=== PATIENT | male | born 1960 | race African-American/Black ===

== ENCOUNTER 2016-08-13 08:46 | Emergency (ER) | payer MEDICAID, OTHER ==
[~2016-08-13] VITALS: Ht 180.3 cm; Wt 70.0 kg
[~2016-08-13 08:46] MED LIST: AMLO10TA80 PO; ATOR20TA65 PO; HYDR-3933 PO; RIVA20TA PO; ZOLP5TAB8
[2016-08-13] MEDS ORDERED: MORPHINE SULFATE 4 MG/ML CPJ (NOT FOR IM USE) IV STA (09:10)
[2016-08-13] MEDS ORDERED: FAMOTIDINE 20MG/2ML VIAL IV STA (09:10)
[2016-08-13] MEDS ORDERED: SODIUM CHLORIDE 0.9% 1,000 ML IV ONE (09:10)
[2016-08-13] MEDS ORDERED: ONDANSETRON HCL 4MG/2ML VIAL IV STA (09:10)
[2016-08-13] MEDS ORDERED: SODIUM CHLORIDE 0.9% 1000ML BAG (SEPSIS BOLUS) IV ONE (09:15)
[2016-08-13 09:39] LABS: CLARITY URINE CLEAR (CLEAR); COLOR URINE YELLOW (YELLOW); GLUCOSE URINE NEGATIVE (NEGATIVE); KETONES URINE NEGATIVE (NEGATIVE); LEUKOCYTE ESTERASE URINE NEGATIVE (NEGATIVE); NITRITE URINE NEGATIVE (NEGATIVE); OCCULT BLOOD URINE 1+ (NEGATIVE); PROTEIN URINE NEGATIVE (NEGATIVE); SPECIFIC GRAVITY URINE 1.007 (1.005-1.030); UROBILINOGEN URINE 0.2 E.U./dL (0.2-1.0)
[2016-08-13 09:39] LABS: BASOPHILS % 0.4 % (0.0-2.0); DIFFERENTIAL COMMENT 1; EOSINOPHILS % 0.2 % (0.0-5.0); HEMATOCRIT. 44.1 % (42.0-52.0); HEMOGLOBIN. 15.9 g/dL (14.0-18.0); LYMPHOCYTES % 12.3 % (20.0-50.0); MEAN CORPUSCULAR HGB CONC 36.1 g/dL (31.0-37.0); MEAN CORPUSCULAR VOLUME 91.2 fL (80.0-94.0); MEAN PLATELET VOLUME 6.8 fl (7.4-10.4); MONOCYTES % 5.9 % (2.0-8.0); NEUTROPHILS % 81.2 % (40.0-76.0); PLATELET 208 x1000/uL (130-400); RED BLOOD CELL COUNT 4.84 mill/uL (4.7-6.1); RED CELL DISTRIBUTION WIDTH 16.6 % (11.6-14.6); WHITE BLOOD COUNT 5.9 x1000/uL (4.5-11.0)
[2016-08-13 09:40] LABS: BACTERIA URINE NONE SEEN; CALCIUM PHOSPHATE CRYSTALS UR NONE SEEN /lpf; RBC URINE NONE SEEN /hpf (0-2); SQUAMOUS EPITHELIAL CELL URINE NONE SEEN /lpf (RARE/1+); WAXY CASTS URINE NONE SEEN /lpf; WBC URINE NONE SEEN /hpf (0-2); YEAST URINE NONE SEEN
[2016-08-13 09:42] LABS: PARTIAL THROMBOPLASTIN TIME 28.4 sec (24.0-34.0); PROTHROMBIN TIME 10.3 sec
[2016-08-13 09:50] LABS: ALANINE AMINOTRANSFERASE 38 IU/L (13-61); ALBUMIN 3.2 g/dL (3.4-5.0); ANION GAP 14; CALCIUM 8.7 mg/dL (8.5-10.1); CARBON DIOXIDE 24 mEq/L (21-32); CHLORIDE 101 mEq/L (98-107); ETHANOL BLOOD 61 mg/dL; INDEX HEMOLYSI 1 (1-3); INDEX ICTERIC 1 (1-4); INDEX LIPEMIC 1 (1-3); LIPASE 85 IU/L (73-393); TROPONIN I < 0.02 ng/mL (0.00-0.04); UREA NITROGEN BLOOD 5 mg/dL (7-21); eGFR > 60 mL/min (>60)
[2016-08-13 10:09] LABS: *AMPHETAMINES SCREEN URINE NEGATIVE (NEGATIVE); *BARBITURATES SCREEN URINE NEGATIVE (NEGATIVE); *BENZODIAZEPINES SCREEN URINE NEGATIVE (NEGATIVE); *COCAINE SCREEN URINE NEGATIVE (NEGATIVE); CANNABINOID URINE SCREEN PRESUMTIVE POSITIVE (NEGATIVE); ECSTASY MDMA SCREEN URINE NEGATIVE (NEGATIVE); METHADONE URINE SCREEN NEGATIVE (NEGATIVE); OPIATES URINE SCREEN NEGATIVE (NEGATIVE); PHENCYCLIDINE URINE SCREEN NEGATIVE (NEGATIVE)
[2016-08-13 11:04] VITALS: BP 135/89
== END 2016-08-13 13:10 | disposition home or self-care (01) ==
LOC: ER 08:46
DX: R10.9 Unspecified abdominal pain (principal); R11.10 Vomiting, unspecified; R19.7 Diarrhea, unspecified; I10 Essential (primary) hypertension; R31.29 Other microscopic hematuria; Z79.01 Long term (current) use of anticoagulants; Z89.512 Acquired absence of left leg below knee
CPT/HCPCS: 36415; 71010; 74176; 76705; 80053; 80305; 81001; 83690; 84484; 85025; 85610; 85730; 93005; 96361; 96374; 96375; 99285; G0482; J2270; J2405; J3490; J7030; Z7610

== ENCOUNTER 2016-09-08 07:12 | Emergency (ER) | payer MEDICAID, OTHER ==
[~2016-09-08] VITALS: Ht 172.7 cm; Wt 73.0 kg
[2016-09-08] MEDS ORDERED: SODIUM CHLORIDE 0.9% 1,000 ML IV ONE (07:53)
[2016-09-08] MEDS ORDERED: MORPHINE SULFATE 4 MG/ML CPJ (NOT FOR IM USE) IV ONE (08:00)
[2016-09-08 08:22] LABS: CHLORIDE 102 mEq/L (98-107)
[2016-09-08 08:23] LABS: PROTHROMBIN TIME 10.6 sec
[2016-09-08 08:30] LABS: CARBON DIOXIDE 25 mEq/L (21-32)
[2016-09-08 08:35] LABS: BASOPHILS % 1.2 % (0.0-2.0); EOSINOPHILS % 0.8 % (0.0-5.0); HEMATOCRIT. 42.3 % (42.0-52.0); HEMOGLOBIN. 15.4 g/dL (14.0-18.0); LYMPHOCYTES % 22.4 % (20.0-50.0); MEAN CORPUSCULAR HEMOGLOBIN 33.8 pg (28.0-32.0); MEAN PLATELET VOLUME 6.8 fl (7.4-10.4); MONOCYTES % 8.5 % (2.0-8.0); NEUTROPHILS % 67.1 % (40.0-76.0); PLATELET 241 x1000/uL (130-400); RED BLOOD CELL COUNT 4.54 mill/uL (4.7-6.1); RED CELL DISTRIBUTION WIDTH 16.2 % (11.6-14.6)
[2016-09-08 10:12] LABS: CLARITY URINE CLEAR (CLEAR); COLOR URINE YELLOW (YELLOW); GLUCOSE URINE NEGATIVE (NEGATIVE); KETONES URINE NEGATIVE (NEGATIVE); LEUKOCYTE ESTERASE URINE NEGATIVE (NEGATIVE); NITRITE URINE NEGATIVE (NEGATIVE); OCCULT BLOOD URINE TRACE (NEGATIVE); PH URINE 5.5 (4.5-8.0); PROTEIN URINE NEGATIVE (NEGATIVE); SPECIFIC GRAVITY URINE 1.011 (1.005-1.030); UROBILINOGEN URINE 0.2 E.U./dL (0.2-1.0)
[2016-09-08] MEDS ORDERED: POLYETHYLENE GLYCOL 3350 (17GM) 1 DOSE PACK PO ONE (11:00)
[2016-09-08 11:10] VITALS: BP 138/88
== END 2016-09-08 11:45 | disposition home or self-care (01) ==
LOC: ER 07:12
DX: K59.00 Constipation, unspecified (principal); I10 Essential (primary) hypertension; F17.210 Nicotine dependence, cigarettes, uncomplicated; F12.10 Cannabis abuse, uncomplicated; Z79.899 Other long term (current) drug therapy
CPT/HCPCS: 36415; 80053; 81001; 83690; 85025; 85610; 96361; 96374; 99284; J2270; J7030; Z7610

== ENCOUNTER 2016-09-09 14:44 | Emergency (ER) | payer MEDICAID, OTHER ==
[~2016-09-09] VITALS: Ht 182.9 cm; Wt 82.0 kg
[2016-09-09] MEDS ORDERED: MORPHINE SULFATE 4 MG/ML CPJ (NOT FOR IM USE) IV STA (16:41)
[2016-09-09] MEDS ORDERED: ONDANSETRON HCL 4MG/2ML VIAL IV STA (16:41)
[2016-09-09] MEDS ORDERED: SODIUM CHLORIDE 0.9% 1,000 ML IV ONE (16:41)
[2016-09-09 17:22] LABS: CHLORIDE 104 mEq/L (98-107)
[2016-09-09 17:24] LABS: PROTHROMBIN TIME 10.8 sec
[2016-09-09 17:25] LABS: CARBON DIOXIDE 26 mEq/L (21-32)
[2016-09-09 17:42] LABS: HEMATOCRIT. 40.4 % (42.0-52.0); HEMOGLOBIN. 14.4 g/dL (14.0-18.0); MEAN CORPUSCULAR HEMOGLOBIN 33.3 pg (28.0-32.0); MEAN CORPUSCULAR VOLUME 93.2 fL (80.0-94.0); MEAN PLATELET VOLUME 6.8 fl (7.4-10.4); PLATELET 231 x1000/uL (130-400); RED BLOOD CELL COUNT 4.34 mill/uL (4.7-6.1)
[2016-09-09 18:44] LABS: CLARITY URINE CLEAR (CLEAR); COLOR URINE YELLOW (YELLOW); GLUCOSE URINE NEGATIVE (NEGATIVE); KETONES URINE NEGATIVE (NEGATIVE); LEUKOCYTE ESTERASE URINE NEGATIVE (NEGATIVE); NITRITE URINE NEGATIVE (NEGATIVE); OCCULT BLOOD URINE NEGATIVE (NEGATIVE); PH URINE 5.5 (4.5-8.0); PROTEIN URINE NEGATIVE (NEGATIVE); SPECIFIC GRAVITY URINE 1.011 (1.005-1.030); UROBILINOGEN URINE 0.2 E.U./dL (0.2-1.0)
[2016-09-09 18:50] LABS: ATYPICAL LYMPHOCYTES 1; PLATELET ESTIMATE NORMAL
[2016-09-09] MEDS ORDERED: SORBITOL 70% SOLN 30ML PO ONE (19:15)
[2016-09-09] MEDS ORDERED: NA PHOS,M-B/NA PHOS,DI-BA ENEMA 118ML PR ONE (19:15)
[2016-09-09 22:10] VITALS: BP 139/81
== END 2016-09-09 23:40 | disposition home or self-care (01) ==
LOC: ER 15:10
DX: K59.00 Constipation, unspecified (principal); I10 Essential (primary) hypertension; F12.10 Cannabis abuse, uncomplicated; Z89.512 Acquired absence of left leg below knee; Z79.01 Long term (current) use of anticoagulants
CPT/HCPCS: 36415; 71010; 74176; 80053; 81003; 83690; 85025; 85610; 96361; 96374; 96375; 99285; J2270; J2405; J7030

== ENCOUNTER 2016-11-05 01:11 | Emergency (ER) | payer OTHER ==
[~2016-11-05] VITALS: Ht 182.9 cm; Wt 82.0 kg
[2016-11-05] MEDS ORDERED: SODIUM CHLORIDE 0.9% 500 ML IV ONE (02:22)
[2016-11-05 02:40] LABS: CHLORIDE 99 mEq/L (98-107)
[2016-11-05 02:41] LABS: EOSINOPHILS % 0.4 % (0.0-5.0); MEAN PLATELET VOLUME 6.8 fl (7.4-10.4); RED CELL DISTRIBUTION WIDTH 14.3 % (11.6-14.6)
[2016-11-05 02:42] LABS: PROTHROMBIN TIME 10.3 sec
[2016-11-05] MEDS ORDERED: MORPHINE SULFATE 4 MG/ML CPJ (NOT FOR IM USE) IV ONE (02:45)
[2016-11-05] MEDS ORDERED: ONDANSETRON HCL 4MG/2ML VIAL IV ONE (02:45)
[2016-11-05 02:49] LABS: CARBON DIOXIDE 21 mEq/L (21-32)
[2016-11-05 03:03] VITALS: BP 146/91
[2016-11-05 03:03] LABS: BASOPHILS % 0.6 % (0.0-2.0); HEMATOCRIT. 40.8 % (42.0-52.0); HEMOGLOBIN. 14.8 g/dL (14.0-18.0); LYMPHOCYTES % 17.5 % (20.0-50.0); MEAN CORPUSCULAR HEMOGLOBIN 34.3 pg (28.0-32.0); MEAN CORPUSCULAR VOLUME 94.7 fL (80.0-94.0); MONOCYTES % 8.5 % (2.0-8.0); PLATELET 237 x1000/uL (130-400); RED BLOOD CELL COUNT 4.31 mill/uL (4.7-6.1)
[2016-11-05 05:47] LABS: CLARITY URINE CLEAR (CLEAR); COLOR URINE YELLOW (YELLOW); GLUCOSE URINE NEGATIVE (NEGATIVE); KETONES URINE 1+ (NEGATIVE); LEUKOCYTE ESTERASE URINE NEGATIVE (NEGATIVE); NITRITE URINE NEGATIVE (NEGATIVE); OCCULT BLOOD URINE TRACE (NEGATIVE); PROTEIN URINE NEGATIVE (NEGATIVE); SPECIFIC GRAVITY URINE 1.013 (1.005-1.030); UROBILINOGEN URINE 0.2 E.U./dL (0.2-1.0)
[2016-11-05] MEDS ORDERED: CEFTRIAXONE SODIUM 250 MG/VIAL IM ONE (07:15)
[2016-11-05] MEDS ORDERED: ONDANSETRON 4MG ODT PO ONE (07:15)
[2016-11-05] MEDS ORDERED: HYDROCODONE/ACETAMINOPHEN 5/325MG TABLET PO ONE (07:15)
== END 2016-11-05 07:39 | disposition home or self-care (01) ==
LOC: ER 01:11
DX: R10.11 Right upper quadrant pain (principal); E78.00 Pure hypercholesterolemia, unspecified; F12.10 Cannabis abuse, uncomplicated; I10 Essential (primary) hypertension; R07.9 Chest pain, unspecified; R06.02 Shortness of breath; Z89.512 Acquired absence of left leg below knee; Z79.01 Long term (current) use of anticoagulants
CPT/HCPCS: 36415; 71010; 74176; 80053; 81001; 83690; 85025; 85610; 93005; 96361; 96374; 96375; 99285; J2270; J2405; J7040; Z7610

== ENCOUNTER 2016-11-05 23:36 | Inpatient (IN) | payer OTHER ==
[~2016-11-05] VITALS: Ht 180.3 cm; Wt 64.0 kg
[2016-11-05] MEDS ORDERED: ONDANSETRON HCL 4MG/2ML VIAL IV STA (23:58)
[2016-11-05] MEDS ORDERED: SODIUM CHLORIDE 0.9% 1,000 ML IV ONE (23:58)
[2016-11-05] MEDS ORDERED: FAMOTIDINE 20MG/2ML VIAL IV STA (23:58)
[2016-11-05] MEDS ORDERED: VISCOUS LIDOCAINE 2% 15 ML UDC PO STA (23:58)
[2016-11-05] MEDS ORDERED: KETOROLAC 30MG/ML VIAL IV STA (23:58)
[2016-11-05] MEDS ORDERED: MAGNESIUM/ALUMINUM HYDROXIDE/SIMETHICONE 30ML UDC PO STA (23:58)
[2016-11-06 00:40] LABS: BASOPHILS % 0.2 % (0.0-2.0); EOSINOPHILS % 0.2 % (0.0-5.0); LYMPHOCYTES % 12.6 % (20.0-50.0); MEAN CORPUSCULAR VOLUME 93.8 fL (80.0-94.0); MEAN PLATELET VOLUME 6.7 fl (7.4-10.4); MONOCYTES % 5.3 % (2.0-8.0); NEUTROPHILS % 81.7 % (40.0-76.0); PLATELET 226 x1000/uL (130-400); RED BLOOD CELL COUNT 4.17 mill/uL (4.7-6.1); RED CELL DISTRIBUTION WIDTH 14.5 % (11.6-14.6)
[2016-11-06 01:00] LABS: CARBON DIOXIDE 21 mEq/L (21-32); CHLORIDE 98 mEq/L (98-107); ETHANOL BLOOD < 10 mg/dL; TROPONIN I < 0.02 ng/mL (0.00-0.04)
[2016-11-06 01:19] LABS: D-DIMER 18.85 mg/L FEU (<0.50); PROTHROMBIN TIME 10.2 sec
[2016-11-06 01:39] LABS: HEMATOCRIT. 42.5 % (42.0-52.0); MEAN CORPUSCULAR HEMOGLOBIN 33.8 pg (28.0-32.0)
[2016-11-06] MEDS ORDERED: SODIUM CHLORIDE 0.9% 1,000 ML IV ONE (02:41)
[2016-11-06 04:45] LABS: CLARITY URINE CLEAR (CLEAR); COLOR URINE YELLOW (YELLOW); GLUCOSE URINE NEGATIVE (NEGATIVE); KETONES URINE 1+ (NEGATIVE); LEUKOCYTE ESTERASE URINE NEGATIVE (NEGATIVE); NITRITE URINE NEGATIVE (NEGATIVE); OCCULT BLOOD URINE 1+ (NEGATIVE); PH URINE 5.5 (4.5-8.0); PROTEIN URINE NEGATIVE (NEGATIVE); SPECIFIC GRAVITY URINE 1.013 (1.005-1.030); UROBILINOGEN URINE 0.2 E.U./dL (0.2-1.0)
[2016-11-06 05:00] LABS: *AMPHETAMINES SCREEN URINE NEGATIVE (NEGATIVE); *BARBITURATES SCREEN URINE NEGATIVE (NEGATIVE); *BENZODIAZEPINES SCREEN URINE NEGATIVE (NEGATIVE); *COCAINE SCREEN URINE NEGATIVE (NEGATIVE); CANNABINOID URINE SCREEN PRESUMTIVE POSITIVE (NEGATIVE); METHADONE URINE SCREEN NEGATIVE (NEGATIVE); OPIATES URINE SCREEN PRESUMTIVE POSITIVE (NEGATIVE); PHENCYCLIDINE URINE SCREEN NEGATIVE (NEGATIVE)
[2016-11-06 08:00] VITALS: BP 153/89
[2016-11-06] MEDS ORDERED: ONDANSETRON HCL 4MG/2ML VIAL IV PRN (08:15)
[2016-11-06] MEDS: AMLODIPINE 10MG TABLET PO SCH (08:32)
[2016-11-06] MEDS: MORPHINE SULFATE 2 MG/ML CPJ (NOT FOR IM USE) IV PRN ×4 (08:33→20:39)
[2016-11-06] MEDS: FOLIC ACID 1 MG, THIAMINE HCL 100 MG, MVI, ADULT NO.1 10 ML in DEXTROSE 5% WATER 1,000 ML IV SCH ×4 (08:49)
[2016-11-06] MEDS ORDERED: IOHEXOL-350 100 ML BOTTLE ONE (09:22)
[2016-11-06] MEDS ORDERED: SODIUM CHLORIDE 0.9% 10ML VIAL ONE (09:22)
[2016-11-06 12:00] VITALS: BP 144/89
[2016-11-06 16:00] VITALS: BP 136/89
[2016-11-06] MEDS: RIVAROXABAN 20 MG TABLET PO SCH (16:42)
[2016-11-06] MEDS: DEXT 5%/0.45% NACL KCL 20MEQ/L 1,000 ML IV SCH (19:07)
[2016-11-06 20:00] VITALS: BP 141/89
[2016-11-06] MEDS: ZOLPIDEM TARTRATE 5MG TABLET PO PRN (23:34)
[2016-11-07] VITALS: BP 121/84
[2016-11-07] MEDS: MORPHINE SULFATE 2 MG/ML CPJ (NOT FOR IM USE) IV PRN ×6 (00:54→21:08)
[2016-11-07] MEDS: DEXT 5%/0.45% NACL KCL 20MEQ/L 1,000 ML IV SCH ×3 (00:56→17:23)
[2016-11-07 04:00] VITALS: BP 124/80
[2016-11-07 08:00] VITALS: BP 131/79
[2016-11-07] MEDS: AMLODIPINE 10MG TABLET PO SCH (08:16)
[2016-11-07] MEDS: FOLIC ACID 1 MG, THIAMINE HCL 100 MG, MVI, ADULT NO.1 10 ML in DEXTROSE 5% WATER 1,000 ML IV SCH ×4 (08:17)
[2016-11-07 12:00] VITALS: BP 160/101
[2016-11-07 16:00] VITALS: BP 149/87
[2016-11-07] MEDS: RIVAROXABAN 20 MG TABLET PO SCH (17:50)
[2016-11-07 20:00] VITALS: BP 148/95
[2016-11-07] MEDS: CLONIDINE 0.2MG TABLET PO SCH (21:15)
[2016-11-07] MEDS: ZOLPIDEM TARTRATE 5MG TABLET PO PRN (22:44)
[2016-11-08] VITALS: BP 124/80
[2016-11-08] MEDS: DEXT 5%/0.45% NACL KCL 20MEQ/L 1,000 ML IV SCH ×2 (02:04→09:05)
[2016-11-08] MEDS: MORPHINE SULFATE 2 MG/ML CPJ (NOT FOR IM USE) IV PRN ×2 (02:11→06:55)
[2016-11-08] MEDS: CLONIDINE 0.2MG TABLET PO SCH (06:57)
[2016-11-08 07:52] LABS: CHLORIDE 97 mEq/L (98-107)
[2016-11-08 07:57] LABS: HEMATOCRIT 42.5 % (42.0-52.0); HEMOGLOBIN 15.2 g/dL (14.0-18.0); MEAN CORPUSCULAR HEMOGLOBIN 33.9 pg (28.0-32.0); MEAN CORPUSCULAR VOLUME 94.6 fL (80.0-94.0); PLATELET 230 x1000/uL (130-400); RED BLOOD CELL COUNT 4.49 mill/uL (4.7-6.1); RED CELL DISTRIBUTION WIDTH 14.4 % (11.6-14.6)
[2016-11-08 08:00] VITALS: BP 122/82
[2016-11-08 08:07] LABS: CARBON DIOXIDE 25 mEq/L (21-32)
[2016-11-08] MEDS: FOLIC ACID 1 MG, THIAMINE HCL 100 MG, MVI, ADULT NO.1 10 ML in DEXTROSE 5% WATER 1,000 ML IV SCH ×4 (08:59)
[2016-11-08] MEDS ORDERED: NIFEDIPINE XL 30MG TAB PO SCH (09:00)
== END 2016-11-08 11:15 | disposition left against medical advice (07) | DRG 282 ==
LOC: ER 23:36 → 6EST 11-06 02:48
PROVIDERS: ADMIT Internal Medicine; ATTEND Internal Medicine
DX: K85.20 Alcohol induced acute pancreatitis without necrosis or infection (principal); E44.0 Moderate protein-calorie malnutrition; I10 Essential (primary) hypertension; F10.10 Alcohol abuse, uncomplicated; E78.5 Hyperlipidemia, unspecified; Z89.512 Acquired absence of left leg below knee; Z53.21 Procedure and treatment not carried out due to patient leaving prior to being seen by health care provider; Z79.899 Other long term (current) drug therapy; Z87.891 Personal history of nicotine dependence; Z86.79 Personal history of other diseases of the circulatory system; Z68.1 Body mass index [BMI] 19.9 or less, adult
CPT/HCPCS: 36415; 71010; 71275; 76700; 80053; 80305; 81001; 83605; 83690; 83880; 84484; 85025; 85027; 85379; 85610; 93005; 96361; 96374; 96375; 99285; A4216; C1893; G0482; J1885; J2270; J2405; J3411; J3490; J7030; J7070; Q9967

== ENCOUNTER 2017-08-04 07:38 | Emergency (ER) | payer MEDICAID, OTHER ==
[~2017-08-04] VITALS: Ht 180.3 cm; Wt 80.0 kg
[2017-08-04] MEDS ORDERED: ONDANSETRON HCL 4MG/2ML VIAL IV STA (09:04)
[2017-08-04] MEDS ORDERED: MORPHINE SULFATE 4 MG/ML CPJ (NOT FOR IM USE) IV STA (09:04)
[2017-08-04] MEDS ORDERED: SODIUM CHLORIDE 0.9% 1,000 ML IV ONE (09:04)
[2017-08-04 09:28] LABS: CHLORIDE 105 mEq/L (98-107)
[2017-08-04 09:30] LABS: INR 0.9; PARTIAL THROMBOPLASTIN TIME 28.7 sec (23.4-31.0); PROTHROMBIN TIME 9.6 sec (9.4-11.6)
[2017-08-04 09:38] LABS: BASOPHILS % 0.9 % (0.0-2.0); EOSINOPHILS % 0.9 % (0.0-5.0); HEMATOCRIT. 42.7 % (42.0-52.0); HEMOGLOBIN. 15.2 g/dL (14.0-18.0); LYMPHOCYTES % 20.5 % (20.0-50.0); MEAN CORPUSCULAR HEMOGLOBIN 33.3 pg (28.0-32.0); MEAN CORPUSCULAR VOLUME 93.5 fL (80.0-94.0); NEUTROPHILS % 69.7 % (40.0-76.0); PLATELET 203 x1000/uL (130-400); RED BLOOD CELL COUNT 4.56 mill/uL (4.7-6.1); RED CELL DISTRIBUTION WIDTH 20.1 % (11.6-14.6)
[2017-08-04] MEDS ORDERED: IOHEXOL-300 100 ML BOTTLE ONE (09:55)
[2017-08-04 12:07] VITALS: BP 151/96
== END 2017-08-04 12:12 | disposition home or self-care (01) ==
LOC: ER 08:02
DX: R07.89 Other chest pain (principal); I10 Essential (primary) hypertension; E78.00 Pure hypercholesterolemia, unspecified; F12.10 Cannabis abuse, uncomplicated; Z98.890 Other specified postprocedural states; Z95.5 Presence of coronary angioplasty implant and graft
CPT/HCPCS: 36415; 71260; 74177; 80053; 83605; 83690; 85025; 85610; 85730; 87040; 93005; 96361; 96374; 96375; 99285; J2270; J2405; J7030; Q9967

== ENCOUNTER 2018-05-21 12:30 | Emergency (ER) | payer MEDICAID, OTHER ==
[~2018-05-21] VITALS: Ht 172.7 cm; Wt 69.0 kg
[2018-05-21] MEDS ORDERED: SODIUM CHLORIDE 0.9% 1,000 ML IV ONE ×2 (13:57→18:39)
[2018-05-21] MEDS ORDERED: ONDANSETRON HCL 4MG/2ML INJ IV STA ×2 (13:57→15:26)
[2018-05-21] MEDS ORDERED: MORPHINE SULFATE 4 MG/ML CPJ (NOT FOR IM USE) IV STA ×2 (13:57→15:26)
[2018-05-21 15:07] LABS: CHLORIDE 102 mEq/L (98-107)
[2018-05-21 15:09] LABS: BASOPHILS % 0.5 % (0.0-2.0); EOSINOPHILS % 0.3 % (0.0-5.0); HEMATOCRIT. 43.5 % (42.0-52.0); HEMOGLOBIN. 15.3 g/dL (14.0-18.0); LYMPHOCYTES % 31.1 % (20.0-50.0); MEAN CORPUSCULAR HEMOGLOBIN 36.7 pg (28.0-32.0); MEAN CORPUSCULAR VOLUME 104.3 fL (80.0-94.0); MEAN PLATELET VOLUME 7.2 fl (7.4-10.4); MONOCYTES % 5.9 % (2.0-8.0); NEUTROPHILS % 62.2 % (40.0-76.0); PLATELET 149 x1000/uL (130-400); PROTHROMBIN TIME 10.5 sec (9.1-11.1); RED BLOOD CELL COUNT 4.17 mill/uL (4.7-6.1); RED CELL DISTRIBUTION WIDTH 15.1 % (11.6-14.6)
[2018-05-21] MEDS ORDERED: ONDANSETRON HCL 4MG/2ML INJ IV ONE (19:00)
[2018-05-21 19:35] LABS: CLARITY URINE CLEAR (CLEAR); COLOR URINE YELLOW (YELLOW); KETONES URINE 1+ (NEGATIVE); LEUKOCYTE ESTERASE URINE NEGATIVE (NEGATIVE); NITRITE URINE NEGATIVE (NEGATIVE); OCCULT BLOOD URINE TRACE (NEGATIVE); PROTEIN URINE TRACE (NEGATIVE)
[2018-05-21] MEDS ORDERED: HYDROCODONE/ACETAMINOPHEN 5/325MG TABLET PO PRN (20:15)
[2018-05-21] MEDS ORDERED: CLONIDINE 0.1MG TABLET PO PRN (20:15)
[2018-05-21] MEDS ORDERED: DEXT 5%/0.45% NACL 1000ML 1,000 ML IV SCH (20:15)
[2018-05-21] MEDS ORDERED: ONDANSETRON HCL 4MG/2ML INJ IV PRN (20:15)
[2018-05-21] MEDS ORDERED: KETOROLAC 30MG/ML VIAL IV PRN (22:30)
[2018-05-21] MEDS ORDERED: HYDROMORPHONE HCL/PF 2MG/ML CPJ IV PRN (22:30)
[2018-05-22] MEDS ORDERED: ENOXAPARIN 80MG/0.8ML SYR SUBCUT NR (05:00)
[2018-05-22 08:26] VITALS: BP 168/101
[2018-05-22 14:38] LABS: *AMPHETAMINES SCREEN URINE NEGATIVE (NEGATIVE); *BARBITURATES SCREEN URINE NEGATIVE (NEGATIVE); *BENZODIAZEPINES SCREEN URINE NEGATIVE (NEGATIVE); *COCAINE SCREEN URINE NEGATIVE (NEGATIVE); CANNABINOID URINE SCREEN PRESUMTIVE POSITIVE (NEGATIVE); METHADONE URINE SCREEN NEGATIVE (NEGATIVE); OPIATES URINE SCREEN PRESUMTIVE POSITIVE (NEGATIVE); PHENCYCLIDINE URINE SCREEN NEGATIVE (NEGATIVE)
== END 2018-05-22 09:01 | disposition left against medical advice (07) ==
LOC: ER 12:47 → EDBEDREQ 20:37 → EDBEDREQTM 20:37 → ER 05-22 09:01 → CANBEDREQ 05-22 09:02
DX: K85.90 Acute pancreatitis without necrosis or infection, unspecified (principal); F17.200 Nicotine dependence, unspecified, uncomplicated; F12.10 Cannabis abuse, uncomplicated; E78.00 Pure hypercholesterolemia, unspecified; I10 Essential (primary) hypertension; Z86.718 Personal history of other venous thrombosis and embolism; Z98.61 Coronary angioplasty status; Z79.899 Other long term (current) drug therapy; Z98.890 Other specified postprocedural states
CPT/HCPCS: 36415; 74176; 76705; 80053; 80305; 81003; 83690; 85025; 85610; 93970; 96361; 96372; 96374; 96375; 96376; 99284; J1170; J1650; J1885; J2270; J2405; J7030; Z7610

== ENCOUNTER 2018-11-11 14:52 | Inpatient (IN) | payer MEDICAID, OTHER ==
[~2018-11-11] VITALS: Ht 170.2 cm; Wt 78.5 kg
[~2018-11-11 14:52] MED LIST changes: -ZOLP5TAB8; +ZOLP5TAB8 PO
[2018-11-11] MEDS ORDERED: ONDANSETRON HCL 4MG/2ML INJ IV STA (15:55)
[2018-11-11] MEDS ORDERED: SODIUM CHLORIDE 0.9% 1,000 ML IV ONE (15:55)
[2018-11-11] MEDS ORDERED: MORPHINE SULFATE 4 MG/ML CPJ (NOT FOR IM USE) IV STA (15:55)
[2018-11-11] MEDS ORDERED: HYDRALAZINE 20MG/ML VIAL IV ONE ×2 (16:00→17:30)
[2018-11-11 16:08] LABS: BASOPHILS % 0.6 % (0.0-2.0); EOSINOPHILS % 0.4 % (0.0-5.0); HEMATOCRIT. 41.2 % (42.0-52.0); HEMOGLOBIN. 14.8 g/dL (14.0-18.0); LYMPHOCYTES % 19.4 % (20.0-50.0); MEAN CORPUSCULAR HEMOGLOBIN 34.2 pg (28.0-32.0); MEAN CORPUSCULAR VOLUME 95.1 fL (80.0-94.0); MEAN PLATELET VOLUME 7.2 fl (7.4-10.4); MONOCYTES % 6.6 % (2.0-8.0); PLATELET 234 x1000/uL (130-400); RED BLOOD CELL COUNT 4.33 mill/uL (4.7-6.1); RED CELL DISTRIBUTION WIDTH 17.8 % (11.6-14.6)
[2018-11-11 16:11] LABS: CHLORIDE 104 mEq/L (98-107)
[2018-11-11 16:15] LABS: PARTIAL THROMBOPLASTIN TIME 27.3 sec (23.4-31.0); PROTHROMBIN TIME 10.1 sec (9.6-11.0)
[2018-11-11] MEDS ORDERED: MORPHINE SULFATE 4 MG/ML CPJ (NOT FOR IM USE) IV ONE (17:00)
[2018-11-11 17:36] LABS: CLARITY URINE CLEAR (CLEAR); COLOR URINE DARK YELLOW (YELLOW); KETONES URINE 3+ (NEGATIVE); LEUKOCYTE ESTERASE URINE TRACE (NEGATIVE); NITRITE URINE NEGATIVE (NEGATIVE); OCCULT BLOOD URINE TRACE (NEGATIVE); PH URINE 6.5 (4.5-8.0); PROTEIN URINE TRACE (NEGATIVE); SPECIFIC GRAVITY URINE 1.025 (1.005-1.030)
[2018-11-11 17:59] LABS: *AMPHETAMINES SCREEN URINE NEGATIVE (NEGATIVE); *BARBITURATES SCREEN URINE NEGATIVE (NEGATIVE); *BENZODIAZEPINES SCREEN URINE NEGATIVE (NEGATIVE); *COCAINE SCREEN URINE NEGATIVE (NEGATIVE); METHADONE URINE SCREEN NEGATIVE (NEGATIVE); OPIATES URINE SCREEN PRESUMTIVE POSITIVE (NEGATIVE)
[2018-11-11 18:00] LABS: CANNABINOID URINE SCREEN PRESUMTIVE POSITIVE (NEGATIVE); PHENCYCLIDINE URINE SCREEN NEGATIVE (NEGATIVE)
[2018-11-11] MEDS ORDERED: KCL 10MEQ/50ML PREMIX 50 ML IV ONE (18:15)
[2018-11-11] MEDS ORDERED: IOHEXOL-350 100 ML BOTTLE ONE (18:29)
[2018-11-11 22:55] VITALS: BP 143/76
[2018-11-11] MEDS ORDERED: RIVA10TA PO (23:29)
[2018-11-11] MEDS ORDERED: SIMV10TA6 PO (23:29)
[2018-11-11] MEDS ORDERED: AMLO10TA80 PO (23:29)
[2018-11-11] MEDS ORDERED: ONDANSETRON HCL 4MG/2ML INJ IV PRN (23:30)
[2018-11-11] MEDS ORDERED: RIVAROXABAN XX SCH (23:45)
[2018-11-12] MEDS: MORPHINE SULFATE 2 MG/ML CPJ (NOT FOR IM USE) IV PRN ×6 (00:56→21:46)
[2018-11-12] MEDS ORDERED: DEXT 5%/0.45% NACL KCL 20MEQ/L 1,000 ML IV NR (01:00)
[2018-11-12 01:45] VITALS: BP 143/76
[2018-11-12 04:00] VITALS: BP 150/86
[2018-11-12 08:00] VITALS: BP 147/82
[2018-11-12 08:32] LABS: BASOPHILS % 0.8 % (0.0-2.0); EOSINOPHILS % 0.3 % (0.0-5.0); HEMOGLOBIN. 14.4 g/dL (14.0-18.0); LYMPHOCYTES % 24.8 % (20.0-50.0); MEAN CORPUSCULAR HEMOGLOBIN 34.5 pg (28.0-32.0); MEAN CORPUSCULAR VOLUME 95.6 fL (80.0-94.0); MEAN PLATELET VOLUME 6.9 fl (7.4-10.4); MONOCYTES % 7.8 % (2.0-8.0); NEUTROPHILS % 66.3 % (40.0-76.0); PLATELET 227 x1000/uL (130-400); RED BLOOD CELL COUNT 4.18 mill/uL (4.7-6.1); RED CELL DISTRIBUTION WIDTH 17.9 % (11.6-14.6)
[2018-11-12] MEDS: PANTOPRAZOLE SODIUM 40 MG/VIAL IV SCH (09:23)
[2018-11-12 09:42] LABS: CHLORIDE 107 mEq/L (98-107)
[2018-11-12] MEDS ORDERED: POTASSIUM CHLORIDE 20MEQ TABLET SR PO NR (10:15)
[2018-11-12] MEDS: AMLODIPINE 10MG TABLET PO SCH (10:30)
[2018-11-12 12:00] VITALS: BP 144/79
[2018-11-12 16:00] VITALS: BP 143/80
[2018-11-12] MEDS ORDERED: RIVAROXABAN 10 MG TABLET PO SCH (17:00)
[2018-11-12] MEDS: RIVAROXABAN 20 MG TABLET PO SCH (17:40)
[2018-11-12 20:00] VITALS: BP 156/95
[2018-11-12] MEDS ORDERED: DOCUSATE SODIUM 250MG CAPSULE PO PRN ×2 (21:30→21:45)
[2018-11-12] MEDS: ZOLPIDEM TARTRATE 5MG TABLET PO PRN (23:47)
[2018-11-13] VITALS: BP 136/65
[2018-11-13] MEDS: MORPHINE SULFATE 2 MG/ML CPJ (NOT FOR IM USE) IV PRN ×5 (02:10→20:15)
[2018-11-13 04:00] VITALS: BP 140/76
[2018-11-13 08:00] VITALS: BP 135/88
[2018-11-13] MEDS: PANTOPRAZOLE SODIUM 40 MG/VIAL IV SCH (09:11)
[2018-11-13] MEDS: AMLODIPINE 10MG TABLET PO SCH (09:11)
[2018-11-13 12:00] VITALS: BP 154/94
[2018-11-13 13:24] LABS: BASOPHILS % 0.4 % (0.0-2.0); EOSINOPHILS % 0.5 % (0.0-5.0); HEMATOCRIT. 44.6 % (42.0-52.0); LYMPHOCYTES % 30.3 % (20.0-50.0); MEAN CORPUSCULAR HEMOGLOBIN 34.5 pg (28.0-32.0); MEAN PLATELET VOLUME 7.1 fl (7.4-10.4); MONOCYTES % 6.6 % (2.0-8.0); NEUTROPHILS % 62.2 % (40.0-76.0); PLATELET 250 x1000/uL (130-400); RED BLOOD CELL COUNT 4.64 mill/uL (4.7-6.1); RED CELL DISTRIBUTION WIDTH 17.6 % (11.6-14.6)
[2018-11-13 13:31] LABS: CHLORIDE 105 mEq/L (98-107)
[2018-11-13 16:00] VITALS: BP 167/91
[2018-11-13] MEDS: RIVAROXABAN 20 MG TABLET PO SCH (17:48)
[2018-11-13 20:17] VITALS: BP 148/93
[2018-11-13] MEDS: ZOLPIDEM TARTRATE 5MG TABLET PO PRN (22:06)
[2018-11-14] MEDS: MORPHINE SULFATE 2 MG/ML CPJ (NOT FOR IM USE) IV PRN ×2 (00:49→05:08)
[2018-11-14 00:54] VITALS: BP 146/93
[2018-11-14 04:00] VITALS: BP 139/84
[2018-11-14 08:00] VITALS: BP 124/59
[2018-11-14] MEDS ORDERED: FAMOTIDINE 20MG TABLET PO SCH (09:00)
[2018-11-14] MEDS: AMLODIPINE 10MG TABLET PO SCH (09:08)
[2018-11-14 10:38] VITALS: BP 140/85
== END 2018-11-14 11:05 | disposition home or self-care (01) | DRG 282 ==
LOC: ER 14:57 → EDBEDREQ 20:07 → EDBEDREQTM 20:07 → 8WST 20:11 → ENRESERV 21:51
PROVIDERS: ADMIT Internal Medicine; ATTEND Internal Medicine
DX: K85.20 Alcohol induced acute pancreatitis without necrosis or infection (principal); Z86.74 Personal history of sudden cardiac arrest; I51.3 Intracardiac thrombosis, not elsewhere classified; E78.00 Pure hypercholesterolemia, unspecified; I10 Essential (primary) hypertension; F12.90 Cannabis use, unspecified, uncomplicated; E87.6 Hypokalemia; F17.200 Nicotine dependence, unspecified, uncomplicated; E78.5 Hyperlipidemia, unspecified; I25.10 Atherosclerotic heart disease of native coronary artery without angina pectoris; Z86.718 Personal history of other venous thrombosis and embolism; Z89.512 Acquired absence of left leg below knee; Z79.899 Other long term (current) drug therapy; Z79.01 Long term (current) use of anticoagulants; Z71.6 Tobacco abuse counseling; Z86.79 Personal history of other diseases of the circulatory system
CPT/HCPCS: 36415; 71045; 71275; 74174; 80048; 80061; 80076; 80305; 82150; 83880; 84484; 93005; 93306; 96374; 99285; C9113; J0360; J2270; J2405; J3480; J7030; Q9967

== ENCOUNTER 2019-03-01 19:15 | Emergency (ER) | payer MEDICAID, OTHER ==
[~2019-03-01] VITALS: Ht 180.3 cm; Wt 79.0 kg
[~2019-03-01 19:15] MED LIST changes: -ATOR20TA65 PO; +SIMV10TA6 PO
[2019-03-01] MEDS ORDERED: ONDANSETRON HCL 4MG/2ML INJ IV STA (20:56)
[2019-03-01] MEDS ORDERED: MORPHINE SULFATE 4 MG/ML CPJ (NOT FOR IM USE) IV STA (20:56)
[2019-03-01] MEDS ORDERED: SODIUM CHLORIDE 0.9% 1,000 ML IV ONE ×2 (20:56→23:00)
[2019-03-01 21:10] LABS: CHLORIDE 104 mEq/L (98-107)
[2019-03-01 21:18] LABS: PROTHROMBIN TIME 9.8 sec (9.6-11.0)
[2019-03-01 21:20] LABS: BASOPHILS % 0.3 % (0.0-2.0); EOSINOPHILS % 0.3 % (0.0-5.0); HEMATOCRIT. 41.9 % (42.0-52.0); HEMOGLOBIN. 15.2 g/dL (14.0-18.0); LYMPHOCYTES % 21.7 % (20.0-50.0); MEAN CORPUSCULAR HEMOGLOBIN 36.1 pg (28.0-32.0); MEAN CORPUSCULAR VOLUME 99.5 fL (80.0-94.0); MEAN PLATELET VOLUME 7.6 fl (7.4-10.4); MONOCYTES % 7.4 % (2.0-8.0); NEUTROPHILS % 70.3 % (40.0-76.0); PLATELET 119 x1000/uL (130-400); RED BLOOD CELL COUNT 4.21 mill/uL (4.7-6.1); RED CELL DISTRIBUTION WIDTH 17.3 % (11.6-14.6)
[2019-03-01] MEDS ORDERED: IOHEXOL-350 100 ML BOTTLE ONE (22:55)
[2019-03-01 23:40] LABS: CLARITY URINE CLEAR (CLEAR); COLOR URINE DARK YELLOW (YELLOW); KETONES URINE 2+ (NEGATIVE); LEUKOCYTE ESTERASE URINE TRACE (NEGATIVE); NITRITE URINE NEGATIVE (NEGATIVE); OCCULT BLOOD URINE TRACE (NEGATIVE); PROTEIN URINE 1+ (NEGATIVE); SPECIFIC GRAVITY URINE 1.046 (1.005-1.030)
[2019-03-02 02:35] VITALS: BP 154/89
== END 2019-03-02 02:36 | disposition home or self-care (01) ==
LOC: ER 19:15
DX: K52.9 Noninfective gastroenteritis and colitis, unspecified (principal); K85.90 Acute pancreatitis without necrosis or infection, unspecified; I10 Essential (primary) hypertension; E78.00 Pure hypercholesterolemia, unspecified; F17.200 Nicotine dependence, unspecified, uncomplicated; I25.2 Old myocardial infarction; Z98.62 Peripheral vascular angioplasty status; Z86.718 Personal history of other venous thrombosis and embolism; Z89.512 Acquired absence of left leg below knee
CPT/HCPCS: 36415; 74174; 80053; 81003; 83605; 83690; 84484; 85025; 85610; 93005; 96361; 96374; 96375; 99284; J2270; J2405; J7030; Q9967

== ENCOUNTER 2019-05-02 00:23 | Emergency (ER) | payer MEDICAID, OTHER ==
[~2019-05-02] VITALS: Ht 170.2 cm; Wt 75.0 kg
[~2019-05-02 00:23] MED LIST changes: -SIMV10TA6 PO; +SIMV10TA97 PO
[2019-05-02] MEDS ORDERED: KETOROLAC 60MG/2ML VIAL IM ONE (01:00)
[2019-05-02 01:09] VITALS: BP 121/78
== END 2019-05-02 01:52 | disposition home or self-care (01) ==
LOC: ER 00:23
DX: R11.0 Nausea (principal); K85.90 Acute pancreatitis without necrosis or infection, unspecified; R10.9 Unspecified abdominal pain; I25.10 Atherosclerotic heart disease of native coronary artery without angina pectoris; I10 Essential (primary) hypertension; Z98.62 Peripheral vascular angioplasty status; Z89.519 Acquired absence of unspecified leg below knee
CPT/HCPCS: 96372; 99283; J1885

== ENCOUNTER 2019-08-26 14:47 | Inpatient (IN) | payer OTHER ==
[~2019-08-26] VITALS: Ht 180.3 cm; Wt 72.6 kg
[2019-08-26] MEDS ORDERED: SODIUM CHLORIDE 0.9% 1,000 ML IV ONE (15:54)
[2019-08-26] MEDS ORDERED: MORPHINE SULFATE 4 MG/ML CPJ (NOT FOR IM USE) IV STA (15:54)
[2019-08-26] MEDS ORDERED: ONDANSETRON HCL 4MG/2ML INJ IV STA (15:54)
[2019-08-26 16:18] LABS: CHLORIDE 105 mEq/L (98-107)
[2019-08-26 16:23] LABS: PARTIAL THROMBOPLASTIN TIME 27.3 sec (23.4-31.0); PROTHROMBIN TIME 11.1 sec (9.6-11.0)
[2019-08-26 16:49] LABS: HEMATOCRIT. 43.6 % (42.0-52.0); HEMOGLOBIN. 15.8 g/dL (14.0-18.0); MEAN CORPUSCULAR HEMOGLOBIN 35.4 pg (28.0-32.0); MEAN CORPUSCULAR VOLUME 97.5 fL (80.0-94.0); MEAN PLATELET VOLUME 7.4 fl (7.4-10.4); PLATELET 252 x1000/uL (130-400); RED BLOOD CELL COUNT 4.47 mill/uL (4.7-6.1); RED CELL DISTRIBUTION WIDTH 14.8 % (11.6-14.6)
[2019-08-26 16:54] LABS: PLATELET ESTIMATE NORMAL
[2019-08-26] MEDS ORDERED: HEPARIN 25,000 UNITS PREMIX 500 ML IV STA (18:29)
[2019-08-26] MEDS ORDERED: HEPARIN 5000 UNITS/ML VIAL IV ONE (18:30)
[2019-08-26 18:33] LABS: *AMPHETAMINES SCREEN URINE NEGATIVE (NEGATIVE); *BARBITURATES SCREEN URINE NEGATIVE (NEGATIVE); *BENZODIAZEPINES SCREEN URINE NEGATIVE (NEGATIVE); *COCAINE SCREEN URINE NEGATIVE (NEGATIVE)
[2019-08-26 18:34] LABS: CANNABINOID URINE SCREEN PRESUMTIVE POSITIVE (NEGATIVE); METHADONE URINE SCREEN NEGATIVE (NEGATIVE); OPIATES URINE SCREEN PRESUMTIVE POSITIVE (NEGATIVE)
[2019-08-26 18:36] LABS: PHENCYCLIDINE URINE SCREEN NEGATIVE (NEGATIVE)
[2019-08-26] MEDS ORDERED: CLONIDINE 0.1MG TABLET PO PRN (19:00)
[2019-08-26] MEDS ORDERED: IPRATROPIUM/ALBUTEROL 0.5-3(2.5)MG/3ML NEB HHN PRN (19:00)
[2019-08-26] MEDS ORDERED: ONDANSETRON HCL 4MG/2ML INJ IV PRN (19:00)
[2019-08-26] MEDS ORDERED: ACETAMINOPHEN 325MG TABLET PO PRN (19:00)
[2019-08-26] MEDS ORDERED: HEPARIN 25,000 UNITS PREMIX 500 ML IV SCH (19:00)
[2019-08-26] MEDS ORDERED: IOHEXOL-350 100 ML BOTTLE ONE (19:11)
[2019-08-26 19:41] LABS: PHOSPHORUS 2.8 mg/dL (2.5-4.9)
[2019-08-26] MEDS ORDERED: MORPHINE SULFATE 2 MG/ML CPJ (NOT FOR IM USE) IV PRN ×3 (21:15→23:45)
[2019-08-26] MEDS ORDERED: HEPARIN BOLUS PRN aPTT <36 IV (23:00)
[2019-08-26] MEDS ORDERED: HEPARIN BOLUS PRN aPTT 37-44 IV (23:00)
[2019-08-27 02:22] LABS: BASOPHILS % 0.9 % (0.0-2.0); EOSINOPHILS % 2.4 % (0.0-5.0); HEMATOCRIT. 41.6 % (42.0-52.0); LYMPHOCYTES % 41.3 % (20.0-50.0); MEAN CORPUSCULAR HEMOGLOBIN 35.2 pg (28.0-32.0); MEAN CORPUSCULAR VOLUME 97.7 fL (80.0-94.0); MEAN PLATELET VOLUME 6.9 fl (7.4-10.4); MONOCYTES % 8.6 % (2.0-8.0); NEUTROPHILS % 46.8 % (40.0-76.0); PLATELET 290 x1000/uL (130-400); RED BLOOD CELL COUNT 4.26 mill/uL (4.7-6.1); RED CELL DISTRIBUTION WIDTH 14.1 % (11.6-14.6)
[2019-08-27 02:26] LABS: CHLORIDE 107 mEq/L (98-107)
[2019-08-27 02:33] LABS: INR 1.1; PARTIAL THROMBOPLASTIN TIME 69.7 sec (23.4-31.0); PROTHROMBIN TIME 11.4 sec (9.6-11.0)
[2019-08-27] MEDS: MORPHINE SULFATE 2 MG/ML CPJ (NOT FOR IM USE) IV PRN ×4 (05:26→21:51)
[2019-08-27 05:39] LABS: BASOPHILS % 0.9 % (0.0-2.0); EOSINOPHILS % 1.3 % (0.0-5.0); HEMATOCRIT. 41.5 % (42.0-52.0); HEMOGLOBIN. 15.2 g/dL (14.0-18.0); LYMPHOCYTES % 29.3 % (20.0-50.0); MEAN CORPUSCULAR HEMOGLOBIN 35.6 pg (28.0-32.0); MEAN CORPUSCULAR VOLUME 97.2 fL (80.0-94.0); MEAN PLATELET VOLUME 6.5 fl (7.4-10.4); MONOCYTES % 9.2 % (2.0-8.0); NEUTROPHILS % 59.3 % (40.0-76.0); PLATELET 284 x1000/uL (130-400); RED BLOOD CELL COUNT 4.27 mill/uL (4.7-6.1); RED CELL DISTRIBUTION WIDTH 14.5 % (11.6-14.6)
[2019-08-27 05:44] LABS: CHLORIDE 105 mEq/L (98-107)
[2019-08-27 05:52] LABS: LDL CHOLESTEROL 103 mg/dL (5-100)
[2019-08-27 05:54] LABS: HDL CHOLESTEROL 46 mg/dL (40-59)
[2019-08-27] MEDS: AMLODIPINE 5MG TABLET PO SCH (11:44)
[2019-08-27] MEDS: ASPIRIN 81MG EC TABLET PO SCH (11:44)
[2019-08-27] MEDS ORDERED: DEXTROSE 50% WATER 50ML SYRINGE IV PRN (11:45)
[2019-08-27 11:54] VITALS: BP 144/99
[2019-08-27] MEDS: INSULIN LISPRO 100 UNITS/ML SUBCUT SCH ×3 (11:56→21:00)
[2019-08-27] MEDS: BLOOD SUGAR DIAGNOSTIC STRIP TEST SCH ×3 (11:56→21:50)
[2019-08-27 12:00] VITALS: BP 144/99
[2019-08-27] MEDS ORDERED: HYDROCODONE/ACETAMINOPHEN 5/325MG TABLET PO PRN (12:45)
[2019-08-27] MEDS ORDERED: NITROGLYCERIN OINT 1GM/INCH UDPKT TD SCH (13:00)
[2019-08-27] MEDS ORDERED: ENOXAPARIN 60MG/0.6ML SYR SUBCUT SCH (14:00)
[2019-08-27 16:25] VITALS: BP 145/89
[2019-08-27 20:50] VITALS: BP 125/80
[2019-08-27] MEDS ORDERED: ZOLPIDEM TARTRATE 5MG TABLET PO PRN (21:00)
[2019-08-27] MEDS ORDERED: ATORVASTATIN CALCIUM 10MG TABLET PO SCH (21:00)
[2019-08-27] MEDS: NITROGLYCERIN OINT 1GM/INCH UDPKT TD SCH (21:48)
[2019-08-28 00:06] VITALS: BP 141/85
[2019-08-28] MEDS: MORPHINE SULFATE 2 MG/ML CPJ (NOT FOR IM USE) IV PRN ×3 (02:06→11:27)
[2019-08-28] MEDS: NITROGLYCERIN OINT 1GM/INCH UDPKT TD SCH ×2 (03:10→11:16)
[2019-08-28 04:53] VITALS: BP 115/75
[2019-08-28] MEDS: BLOOD SUGAR DIAGNOSTIC STRIP TEST SCH (06:27)
[2019-08-28 06:55] LABS: PARTIAL THROMBOPLASTIN TIME 31.7 sec (23.4-31.0); PROTHROMBIN TIME 10.6 sec (9.6-11.0)
[2019-08-28 07:08] LABS: CHLORIDE 102 mEq/L (98-107)
[2019-08-28 08:00] VITALS: BP 115/67
[2019-08-28 08:02] LABS: BASOPHILS % 1.5 % (0.0-2.0); EOSINOPHILS % 1.6 % (0.0-5.0); HEMATOCRIT. 40.5 % (42.0-52.0); HEMOGLOBIN. 14.6 g/dL (14.0-18.0); LYMPHOCYTES % 30.3 % (20.0-50.0); MEAN CORPUSCULAR HEMOGLOBIN 35.4 pg (28.0-32.0); MEAN CORPUSCULAR VOLUME 98.2 fL (80.0-94.0); MEAN PLATELET VOLUME 6.8 fl (7.4-10.4); MONOCYTES % 8.9 % (2.0-8.0); NEUTROPHILS % 57.7 % (40.0-76.0); PLATELET 294 x1000/uL (130-400); RED BLOOD CELL COUNT 4.12 mill/uL (4.7-6.1); RED CELL DISTRIBUTION WIDTH 14.4 % (11.6-14.6)
[2019-08-28] MEDS: AMLODIPINE 5MG TABLET PO SCH (09:21)
[2019-08-28] MEDS: ASPIRIN 81MG EC TABLET PO SCH (09:21)
[2019-08-28] MEDS ORDERED: SODIUM CHLORIDE 0.45% 1,000 ML IV SCH (11:00)
[2019-08-28 12:00] VITALS: BP 115/67
[2019-08-28 15:16] VITALS: BP 119/79
[2019-08-28 16:00] VITALS: BP 115/67
[2019-08-28] MEDS ORDERED: RIVAROXABAN 20 MG TABLET PO SCH (17:00)
== END 2019-08-28 16:08 | disposition home or self-care (01) | DRG 197 ==
LOC: ER 14:56 → 6WST 18:31 → EDBEDREQ 18:34 → EDBEDREQSVC 18:34 → EDBEDREQTM 18:34 → CANRESERV 20:33 → ENRESERV 20:33 → EDBEDREQSVC 22:24 → EDBEDREQTM 22:24 → ENRESERV 08-27 07:43
PROVIDERS: ADMIT Internal Medicine; ATTEND Internal Medicine
DX: I74.5 Embolism and thrombosis of iliac artery (principal); I71.01 Dissection of thoracic aorta; E11.51 Type 2 diabetes mellitus with diabetic peripheral angiopathy without gangrene; I11.9 Hypertensive heart disease without heart failure; E78.5 Hyperlipidemia, unspecified; F12.90 Cannabis use, unspecified, uncomplicated; I99.8 Other disorder of circulatory system; G47.00 Insomnia, unspecified; I25.10 Atherosclerotic heart disease of native coronary artery without angina pectoris; E78.00 Pure hypercholesterolemia, unspecified; F17.210 Nicotine dependence, cigarettes, uncomplicated; Z89.512 Acquired absence of left leg below knee; Z79.01 Long term (current) use of anticoagulants; Z79.899 Other long term (current) drug therapy; Z79.891 Long term (current) use of opiate analgesic; Z86.79 Personal history of other diseases of the circulatory system; Z82.49 Family history of ischemic heart disease and other diseases of the circulatory system; Z82.3 Family history of stroke; K86.1 Other chronic pancreatitis; Z11.59 Encounter for screening for other viral diseases
CPT/HCPCS: 36415; 71045; 75635; 80048; 80053; 80061; 80305; 82962; 83036; 83735; 83880; 84100; 84443; 84484; 85025; 93005; 93923; 99291; J1644; J1650; J2270; J2405; J7030; Q9967; U0003-CS

== ENCOUNTER 2019-09-17 06:41 | Inpatient (IN) | payer OTHER ==
[~2019-09-17] VITALS: Ht 188 cm; Wt 74.4 kg
[2019-09-17] MEDS ORDERED: SODIUM CHLORIDE 0.9% 1,000 ML IV ONE (07:24)
[2019-09-17] MEDS ORDERED: KETOROLAC 30MG/ML VIAL IV STA (07:24)
[2019-09-17] MEDS ORDERED: ONDANSETRON HCL 4MG/2ML INJ IV STA ×2 (07:24→11:36)
[2019-09-17 09:32] LABS: CHLORIDE 107 mEq/L (98-107)
[2019-09-17 09:36] LABS: ETHANOL BLOOD < 10 mg/dL
[2019-09-17 09:49] LABS: BASOPHILS % 0.6 % (0.0-2.0); HEMATOCRIT. 40.5 % (42.0-52.0); HEMOGLOBIN. 14.7 g/dL (14.0-18.0); LYMPHOCYTES % 11.5 % (20.0-50.0); MEAN CORPUSCULAR HEMOGLOBIN 35.4 pg (28.0-32.0); MEAN CORPUSCULAR VOLUME 97.6 fL (80.0-94.0); MEAN PLATELET VOLUME 6.6 fl (7.4-10.4); MONOCYTES % 5.3 % (2.0-8.0); NEUTROPHILS % 82.6 % (40.0-76.0); PLATELET 255 x1000/uL (130-400); RED BLOOD CELL COUNT 4.16 mill/uL (4.7-6.1); RED CELL DISTRIBUTION WIDTH 14.8 % (11.6-14.6)
[2019-09-17] MEDS ORDERED: MORPHINE SULFATE 4 MG/ML CPJ (NOT FOR IM USE) IV STA (11:36)
[2019-09-17 12:42] LABS: CLARITY URINE CLEAR (CLEAR); COLOR URINE YELLOW (YELLOW); KETONES URINE 2+ (NEGATIVE); LEUKOCYTE ESTERASE URINE NEGATIVE (NEGATIVE); NITRITE URINE NEGATIVE (NEGATIVE); OCCULT BLOOD URINE 2+ (NEGATIVE); PH URINE 5.5 (4.5-8.0); PROTEIN URINE TRACE (NEGATIVE); SPECIFIC GRAVITY URINE 1.035 (1.005-1.030); UROBILINOGEN URINE 0.2 E.U./dL (0.2-1.0)
[2019-09-17 12:58] LABS: *AMPHETAMINES SCREEN URINE NEGATIVE (NEGATIVE); *BARBITURATES SCREEN URINE NEGATIVE (NEGATIVE)
[2019-09-17 12:59] LABS: *BENZODIAZEPINES SCREEN URINE NEGATIVE (NEGATIVE); *COCAINE SCREEN URINE NEGATIVE (NEGATIVE); CANNABINOID URINE SCREEN PRESUMTIVE POSITIVE (NEGATIVE); METHADONE URINE SCREEN NEGATIVE (NEGATIVE); OPIATES URINE SCREEN NEGATIVE (NEGATIVE); PHENCYCLIDINE URINE SCREEN NEGATIVE (NEGATIVE)
[2019-09-17] MEDS ORDERED: IOHEXOL-350 100 ML BOTTLE ONE (15:26)
[2019-09-17] MEDS: MORPHINE SULFATE 2 MG/ML CPJ (NOT FOR IM USE) IV PRN ×2 (17:43→21:20)
[2019-09-17] MEDS: ONDANSETRON HCL 4MG/2ML INJ IV PRN ×2 (17:43→23:53)
[2019-09-17] MEDS ORDERED: CLONIDINE 0.1MG TABLET PO PRN (18:45)
[2019-09-17] MEDS ORDERED: ACETAMINOPHEN 325MG TABLET PO PRN (18:45)
[2019-09-17] MEDS: DEXT 5%/0.45% NACL 1000ML 1,000 ML IV SCH (18:45)
[2019-09-17] MEDS ORDERED: AMLODIPINE 5MG TABLET PO NR (19:00)
[2019-09-17 23:00] VITALS: BP 169/98
[2019-09-18] MEDS: DEXT 5%/0.45% NACL 1000ML 1,000 ML IV SCH ×2 (00:35→14:11)
[2019-09-18] MEDS: MORPHINE SULFATE 2 MG/ML CPJ (NOT FOR IM USE) IV PRN ×3 (01:36→09:52)
[2019-09-18 04:00] VITALS: BP 134/79
[2019-09-18 07:32] LABS: CHLORIDE 104 mEq/L (98-107)
[2019-09-18 08:00] VITALS: BP 133/86
[2019-09-18] MEDS ORDERED: POTASSIUM CHLORIDE 20MEQ TABLET SR PO NR (08:15)
[2019-09-18] MEDS ORDERED: AMLODIPINE 5MG TABLET PO SCH (09:00)
[2019-09-18 12:00] VITALS: BP 142/81
[2019-09-18] MEDS ORDERED: MORPHINE SULFATE 4 MG/ML CPJ (NOT FOR IM USE) IV PRN (13:00)
[2019-09-18] MEDS: ONDANSETRON HCL 4MG/2ML INJ IV PRN (14:15)
[2019-09-18 16:00] VITALS: BP 144/88
[2019-09-18 16:48] VITALS: BP 144/88
[2019-09-18] MEDS ORDERED: RIVAROXABAN 20 MG TABLET PO SCH (17:00)
== END 2019-09-18 18:56 | disposition short-term general hospital (02) | DRG 282 ==
LOC: ER 06:41 → EDBEDREQSVC 19:10 → ENRESERV 22:00 → 6WST 22:52
PROVIDERS: ADMIT Internal Medicine; ATTEND Internal Medicine
DX: K85.90 Acute pancreatitis without necrosis or infection, unspecified (principal); E44.1 Mild protein-calorie malnutrition; E78.5 Hyperlipidemia, unspecified; F17.210 Nicotine dependence, cigarettes, uncomplicated; I10 Essential (primary) hypertension; I25.10 Atherosclerotic heart disease of native coronary artery without angina pectoris; K76.9 Liver disease, unspecified; F12.90 Cannabis use, unspecified, uncomplicated; I70.202 Unspecified atherosclerosis of native arteries of extremities, left leg; Z89.512 Acquired absence of left leg below knee; Z79.01 Long term (current) use of anticoagulants; Z68.21 Body mass index [BMI] 21.0-21.9, adult; Z79.899 Other long term (current) drug therapy; Z71.6 Tobacco abuse counseling
CPT/HCPCS: 36415; 71045; 71275; 74174; 74176; 80048; 80053; 80305; 80320; 81003; 85025; 93005; 99285; J1885; J2270; J2405; J7030; Q9967; G0480

== ENCOUNTER 2019-10-28 11:11 | Inpatient (IN) | payer OTHER ==
[~2019-10-28] VITALS: Ht 175.3 cm; Wt 74.8 kg
[2019-10-28] MEDS ORDERED: ONDANSETRON HCL 4MG/2ML INJ IV STA ×2 (11:46→16:46)
[2019-10-28] MEDS ORDERED: MORPHINE SULFATE 4 MG/ML CPJ (NOT FOR IM USE) IV STA ×2 (11:46→16:46)
[2019-10-28] MEDS ORDERED: SODIUM CHLORIDE 0.9% 1,000 ML IV ONE (12:00)
[2019-10-28 12:20] LABS: BASOPHILS % 0.4 % (0.0-2.0); EOSINOPHILS % 0.1 % (0.0-5.0); HEMATOCRIT. 44.6 % (42.0-52.0); HEMOGLOBIN. 15.8 g/dL (14.0-18.0); LYMPHOCYTES % 22.8 % (20.0-50.0); MEAN CORPUSCULAR VOLUME 101.9 fL (80.0-94.0); MEAN PLATELET VOLUME 7.8 fl (7.4-10.4); MONOCYTES % 4.8 % (2.0-8.0); NEUTROPHILS % 71.9 % (40.0-76.0); PLATELET 363 x1000/uL (130-400); RED BLOOD CELL COUNT 4.38 mill/uL (4.7-6.1); RED CELL DISTRIBUTION WIDTH 15.5 % (11.6-14.6)
[2019-10-28 12:22] LABS: CHLORIDE 104 mEq/L (98-107)
[2019-10-28 12:26] LABS: INR 0.9; PROTHROMBIN TIME 9.8 sec (9.6-11.0)
[2019-10-28 12:29] LABS: ETHANOL BLOOD 100 mg/dL
[2019-10-28] MEDS ORDERED: DEXTROSE 10% WATER 250 ML IV ONE (13:00)
[2019-10-28 17:48] LABS: CLARITY URINE CLEAR (CLEAR); COLOR URINE DARK YELLOW (YELLOW); KETONES URINE 1+ (NEGATIVE); LEUKOCYTE ESTERASE URINE NEGATIVE (NEGATIVE); NITRITE URINE NEGATIVE (NEGATIVE); OCCULT BLOOD URINE 1+ (NEGATIVE); PROTEIN URINE 2+ (NEGATIVE); SPECIFIC GRAVITY URINE 1.026 (1.005-1.030)
[2019-10-28 18:15] LABS: *AMPHETAMINES SCREEN URINE NEGATIVE (NEGATIVE); *BARBITURATES SCREEN URINE NEGATIVE (NEGATIVE); *BENZODIAZEPINES SCREEN URINE NEGATIVE (NEGATIVE); *COCAINE SCREEN URINE NEGATIVE (NEGATIVE); CANNABINOID URINE SCREEN PRESUMTIVE POSITIVE (NEGATIVE); METHADONE URINE SCREEN NEGATIVE (NEGATIVE); OPIATES URINE SCREEN PRESUMTIVE POSITIVE (NEGATIVE); PHENCYCLIDINE URINE SCREEN NEGATIVE (NEGATIVE)
[2019-10-28] MEDS ORDERED: ONDANSETRON HCL 4MG/2ML INJ IV PRN ×2 (19:15→23:00)
[2019-10-28] MEDS ORDERED: FOLIC ACID 1 MG, THIAMINE HCL 100 MG, MVI, ADULT NO.1 10 ML in DEXTROSE 5% WATER 1,000 ML IV NR ×4 (20:30)
[2019-10-28 21:45] VITALS: BP 137/69
[2019-10-28] MEDS: MORPHINE SULFATE 2 MG/ML CPJ (NOT FOR IM USE) IV PRN (23:15)
[2019-10-29] MEDS: MORPHINE SULFATE 2 MG/ML CPJ (NOT FOR IM USE) IV PRN ×4 (03:16→17:45)
[2019-10-29 04:00] VITALS: BP 136/85
[2019-10-29 08:00] VITALS: BP 136/89
[2019-10-29] MEDS ORDERED: POTASSIUM CHLORIDE 20MEQ TABLET SR PO ONE (08:45)
[2019-10-29] MEDS ORDERED: FAMOTIDINE 20MG/2ML VIAL IV SCH (09:00)
[2019-10-29 10:48] LABS: CHLORIDE 101 mEq/L (98-107)
[2019-10-29 12:00] VITALS: BP 129/75
[2019-10-29 16:00] VITALS: BP 129/82
[2019-10-29 18:22] VITALS: BP 129/82
[2019-10-29 20:00] VITALS: BP 144/92
== END 2019-10-29 21:22 | disposition home or self-care (01) | DRG 282 ==
LOC: ER 11:11 → 6EST 19:00 → ENRESERV 20:31
PROVIDERS: ADMIT Internal Medicine; ATTEND Internal Medicine
DX: K85.90 Acute pancreatitis without necrosis or infection, unspecified (principal); I10 Essential (primary) hypertension; E11.649 Type 2 diabetes mellitus with hypoglycemia without coma; Y90.9 Presence of alcohol in blood, level not specified; F17.210 Nicotine dependence, cigarettes, uncomplicated; F12.10 Cannabis abuse, uncomplicated; F10.129 Alcohol abuse with intoxication, unspecified; K76.0 Fatty (change of) liver, not elsewhere classified; K86.1 Other chronic pancreatitis; E87.6 Hypokalemia; E44.1 Mild protein-calorie malnutrition; Z68.24 Body mass index [BMI] 24.0-24.9, adult; Z79.01 Long term (current) use of anticoagulants; Z79.891 Long term (current) use of opiate analgesic; Z79.899 Other long term (current) drug therapy; Z71.41 Alcohol abuse counseling and surveillance of alcoholic; Z71.6 Tobacco abuse counseling
CPT/HCPCS: 36415; 71045; 74176; 80048; 80053; 80305; 80320; 81003; 82962; 85025; 86850; 86900; 93005; 96365; 99291; J2270; J2405; J3411; J3490; J7030; J7070; G0480

== ENCOUNTER 2019-10-30 14:57 | Inpatient (IN) | payer OTHER ==
[~2019-10-30] VITALS: Ht 175.3 cm; Wt 58.5 kg
[2019-10-30] MEDS ORDERED: MORPHINE SULFATE 4 MG/ML CPJ (NOT FOR IM USE) IV STA (15:50)
[2019-10-30] MEDS ORDERED: ONDANSETRON HCL 4MG/2ML INJ IV STA (15:50)
[2019-10-30 16:22] LABS: BASOPHILS % 0.6 % (0.0-2.0); EOSINOPHILS % 0.8 % (0.0-5.0); HEMATOCRIT. 40.5 % (42.0-52.0); HEMOGLOBIN. 14.3 g/dL (14.0-18.0); LYMPHOCYTES % 19.4 % (20.0-50.0); MEAN CORPUSCULAR HEMOGLOBIN 36.2 pg (28.0-32.0); MEAN CORPUSCULAR VOLUME 102.3 fL (80.0-94.0); MONOCYTES % 7.9 % (2.0-8.0); NEUTROPHILS % 71.3 % (40.0-76.0); PLATELET 203 x1000/uL (130-400); RED BLOOD CELL COUNT 3.96 mill/uL (4.7-6.1); RED CELL DISTRIBUTION WIDTH 15.3 % (11.6-14.6)
[2019-10-30 16:26] LABS: CHLORIDE 102 mEq/L (98-107)
[2019-10-30 16:30] LABS: PROTHROMBIN TIME 10.4 sec (9.6-11.0)
[2019-10-30 16:32] LABS: ETHANOL BLOOD < 10 mg/dL
[2019-10-30] MEDS ORDERED: CLONIDINE 0.1MG TABLET PO PRN (17:30)
[2019-10-30] MEDS ORDERED: DIPHENHYDRAMINE 50MG/ML VIAL IV PRN (17:30)
[2019-10-30] MEDS ORDERED: ONDANSETRON HCL 4MG/2ML INJ IV PRN (17:30)
[2019-10-30] MEDS ORDERED: ACETAMINOPHEN 325MG TABLET PO PRN (17:30)
[2019-10-30 17:48] LABS: PHOSPHORUS 2.1 mg/dL (2.5-4.9)
[2019-10-30] MEDS ORDERED: IOHEXOL-350 100 ML BOTTLE ONE (21:57)
[2019-10-30] MEDS: MORPHINE SULFATE 2 MG/ML CPJ (NOT FOR IM USE) IV PRN (23:14)
[2019-10-30 23:37] LABS: CLARITY URINE CLEAR (CLEAR); COLOR URINE DARK YELLOW (YELLOW); KETONES URINE 3+ (NEGATIVE); LEUKOCYTE ESTERASE URINE NEGATIVE (NEGATIVE); NITRITE URINE NEGATIVE (NEGATIVE); OCCULT BLOOD URINE TRACE (NEGATIVE); PROTEIN URINE TRACE (NEGATIVE); SPECIFIC GRAVITY URINE 1.076 (1.005-1.030)
[2019-10-30 23:46] LABS: METHADONE URINE SCREEN NEGATIVE (NEGATIVE); OPIATES URINE SCREEN PRESUMTIVE POSITIVE (NEGATIVE); PHENCYCLIDINE URINE SCREEN NEGATIVE (NEGATIVE)
[2019-10-30 23:47] LABS: *AMPHETAMINES SCREEN URINE NEGATIVE (NEGATIVE); *BARBITURATES SCREEN URINE NEGATIVE (NEGATIVE); *BENZODIAZEPINES SCREEN URINE NEGATIVE (NEGATIVE); *COCAINE SCREEN URINE NEGATIVE (NEGATIVE); CANNABINOID URINE SCREEN PRESUMTIVE POSITIVE (NEGATIVE)
[2019-10-31] VITALS: BP 142/91
[2019-10-31 04:00] VITALS: BP 144/84
[2019-10-31 06:51] LABS: BASOPHILS % 0.8 % (0.0-2.0); EOSINOPHILS % 1.5 % (0.0-5.0); HEMATOCRIT. 38.5 % (42.0-52.0); HEMOGLOBIN. 13.7 g/dL (14.0-18.0); LYMPHOCYTES % 29.9 % (20.0-50.0); MEAN CORPUSCULAR HEMOGLOBIN 35.8 pg (28.0-32.0); MEAN CORPUSCULAR VOLUME 100.5 fL (80.0-94.0); MEAN PLATELET VOLUME 7.2 fl (7.4-10.4); MONOCYTES % 9.8 % (2.0-8.0); PLATELET 210 x1000/uL (130-400); RED BLOOD CELL COUNT 3.83 mill/uL (4.7-6.1); RED CELL DISTRIBUTION WIDTH 15.2 % (11.6-14.6)
[2019-10-31 06:56] LABS: CHLORIDE 104 mEq/L (98-107)
[2019-10-31 07:16] LABS: LDL CHOLESTEROL 98 mg/dL (5-100)
[2019-10-31 07:21] LABS: HDL CHOLESTEROL 47 mg/dL (40-59)
[2019-10-31 08:00] VITALS: BP 127/89
[2019-10-31] MEDS: MORPHINE SULFATE 2 MG/ML CPJ (NOT FOR IM USE) IV PRN ×2 (09:06→14:14)
[2019-10-31 12:05] VITALS: BP 130/84
[2019-10-31 16:00] VITALS: BP 109/53
== END 2019-10-31 16:40 | disposition home or self-care (01) | DRG 241 ==
LOC: ER 14:57 → EDBEDREQ 15:46 → 8WST 17:02 → EDBEDREQTM 17:10 → EDBEDREQ 17:10 → ENRESERV 21:46
PROVIDERS: ADMIT Internal Medicine; ATTEND Internal Medicine
DX: K29.70 Gastritis, unspecified, without bleeding (principal); E11.51 Type 2 diabetes mellitus with diabetic peripheral angiopathy without gangrene; I71.01 Dissection of thoracic aorta; I10 Essential (primary) hypertension; I25.10 Atherosclerotic heart disease of native coronary artery without angina pectoris; K76.0 Fatty (change of) liver, not elsewhere classified; K86.1 Other chronic pancreatitis; Z79.1 Long term (current) use of non-steroidal anti-inflammatories (NSAID); Z79.899 Other long term (current) drug therapy; Z89.512 Acquired absence of left leg below knee
CPT/HCPCS: 36415; 71045; 71275; 76705; 80053; 80061; 80305; 80320; 81003; 83605; 83735; 83880; 84100; 84484; 85025; 93005; 93970; 99285; J2270; J2405; Q9967; G0480

== ENCOUNTER 2019-12-03 12:32 | Inpatient (IN) | payer OTHER ==
[~2019-12-03] VITALS: Ht 167.6 cm; Wt 72.6 kg
[2019-12-03] MEDS ORDERED: ONDANSETRON HCL 4MG/2ML INJ IV STA (12:49)
[2019-12-03] MEDS ORDERED: SODIUM CHLORIDE 0.9% 1,000 ML IV ONE ×2 (12:49→16:50)
[2019-12-03] MEDS ORDERED: MORPHINE SULFATE 4 MG/ML CPJ (NOT FOR IM USE) IV STA (12:49)
[2019-12-03 13:48] LABS: INR 1.1; PROTHROMBIN TIME 11.9 sec (9.6-11.0)
[2019-12-03 13:49] LABS: CHLORIDE 97 mEq/L (98-107)
[2019-12-03 14:02] LABS: BASOPHILS % 0.4 % (0.0-2.0); EOSINOPHILS % 0.4 % (0.0-5.0); HEMATOCRIT. 44.8 % (42.0-52.0); HEMOGLOBIN. 16.3 g/dL (14.0-18.0); LYMPHOCYTES % 24.1 % (20.0-50.0); MEAN CORPUSCULAR HEMOGLOBIN 37.3 pg (28.0-32.0); MEAN CORPUSCULAR VOLUME 102.4 fL (80.0-94.0); MEAN PLATELET VOLUME 7.4 fl (7.4-10.4); MONOCYTES % 8.6 % (2.0-8.0); NEUTROPHILS % 66.5 % (40.0-76.0); PLATELET 165 x1000/uL (130-400); RED BLOOD CELL COUNT 4.38 mill/uL (4.7-6.1); RED CELL DISTRIBUTION WIDTH 16.3 % (11.6-14.6)
[2019-12-03] MEDS ORDERED: MORPHINE SULFATE 4 MG/ML CPJ (NOT FOR IM USE) IV ONE (14:45)
[2019-12-03] MEDS ORDERED: ONDANSETRON HCL 4MG/2ML INJ IV ONE (14:45)
[2019-12-03 17:25] LABS: CLARITY URINE CLEAR (CLEAR); COLOR URINE DK YELLOW (YELLOW); KETONES URINE 2+ (NEGATIVE); LEUKOCYTE ESTERASE URINE NEGATIVE (NEGATIVE); NITRITE URINE NEGATIVE (NEGATIVE); OCCULT BLOOD URINE 2+ (NEGATIVE); PH URINE 5.5 (4.5-8.0); PROTEIN URINE TRACE (NEGATIVE); SPECIFIC GRAVITY URINE 1.029 (1.005-1.030)
[2019-12-03] MEDS ORDERED: LORAZEPAM 2MG/ML CPJ IV PRN (17:30)
[2019-12-03] MEDS ORDERED: ONDANSETRON HCL 4MG/2ML INJ IV PRN (17:30)
[2019-12-03] MEDS ORDERED: IPRATROPIUM/ALBUTEROL 0.5-3(2.5)MG/3ML NEB HHN PRN (17:30)
[2019-12-03] MEDS ORDERED: POTASSIUM CHLORIDE 20MEQ TABLET SR PO NR (18:00)
[2019-12-03] MEDS: HYDROMORPHONE HCL/PF 2MG/ML CPJ IV PRN (20:01)
[2019-12-03] MEDS: SODIUM CHLORIDE 0.9% 1,000 ML IV SCH (21:01)
[2019-12-03 22:25] VITALS: BP 123/68
[2019-12-04] VITALS: BP 155/87
[2019-12-04] MEDS: HYDROMORPHONE HCL/PF 2MG/ML CPJ IV PRN ×7 (00:15→21:30)
[2019-12-04] MEDS: SODIUM CHLORIDE 0.9% 1,000 ML IV SCH ×3 (03:27→22:28)
[2019-12-04 04:00] VITALS: BP 133/89
[2019-12-04 08:00] VITALS: BP 114/73
[2019-12-04 08:39] LABS: BASOPHILS % 0.4 % (0.0-2.0); EOSINOPHILS % 0.8 % (0.0-5.0); HEMOGLOBIN. 13.3 g/dL (14.0-18.0); LYMPHOCYTES % 28.7 % (20.0-50.0); MEAN CORPUSCULAR HEMOGLOBIN 36.8 pg (28.0-32.0); MEAN CORPUSCULAR VOLUME 102.8 fL (80.0-94.0); MEAN PLATELET VOLUME 7.6 fl (7.4-10.4); MONOCYTES % 9.4 % (2.0-8.0); NEUTROPHILS % 60.7 % (40.0-76.0); PLATELET 153 x1000/uL (130-400)
[2019-12-04 08:57] LABS: CHLORIDE 105 mEq/L (98-107)
[2019-12-04 12:00] VITALS: BP 153/97
[2019-12-04] MEDS: AMLODIPINE 10MG TABLET PO SCH (15:14)
[2019-12-04 16:00] VITALS: BP 159/88
[2019-12-04] MEDS ORDERED: RIVAROXABAN 20 MG TABLET PO SCH (17:00)
[2019-12-04 20:00] VITALS: BP 124/67
[2019-12-04] MEDS ORDERED: ATORVASTATIN CALCIUM 10MG TABLET PO SCH (21:00)
[2019-12-05] VITALS: BP 109/67
[2019-12-05] MEDS: HYDROMORPHONE HCL/PF 2MG/ML CPJ IV PRN ×5 (00:21→13:11)
[2019-12-05] MEDS: SODIUM CHLORIDE 0.9% 1,000 ML IV SCH ×2 (05:34→13:11)
[2019-12-05 06:19] LABS: BASOPHILS % 0.7 % (0.0-2.0); EOSINOPHILS % 1.4 % (0.0-5.0); HEMATOCRIT. 35.5 % (42.0-52.0); HEMOGLOBIN. 12.8 g/dL (14.0-18.0); LYMPHOCYTES % 35.8 % (20.0-50.0); MEAN CORPUSCULAR HEMOGLOBIN 37.1 pg (28.0-32.0); MEAN CORPUSCULAR VOLUME 103.2 fL (80.0-94.0); MEAN PLATELET VOLUME 7.3 fl (7.4-10.4); NEUTROPHILS % 54.1 % (40.0-76.0); PLATELET 184 x1000/uL (130-400); RED BLOOD CELL COUNT 3.44 mill/uL (4.7-6.1); RED CELL DISTRIBUTION WIDTH 15.8 % (11.6-14.6)
[2019-12-05 06:29] LABS: CHLORIDE 108 mEq/L (98-107)
[2019-12-05 06:37] LABS: TOTAL IRON BINDING CAPACITY 184 ug/dL (250-450)
[2019-12-05 06:53] LABS: FOLIC ACID (FOLATE) SERUM 4.7 ng/mL (>5.38)
[2019-12-05 08:26] VITALS: BP 108/66
[2019-12-05] MEDS: AMLODIPINE 10MG TABLET PO SCH (08:43)
[2019-12-05 12:10] VITALS: BP 134/76
[2019-12-05 15:28] VITALS: BP 134/76
== END 2019-12-05 16:15 | disposition home or self-care (01) | DRG 282 ==
LOC: ER 12:38 → 6EST 14:36 → EDBEDREQTM 14:58 → EDBEDREQ 14:58 → ENRESERV 21:39
PROVIDERS: ADMIT Internal Medicine; ATTEND Internal Medicine
DX: K85.90 Acute pancreatitis without necrosis or infection, unspecified (principal); D53.9 Nutritional anemia, unspecified; E78.00 Pure hypercholesterolemia, unspecified; E78.5 Hyperlipidemia, unspecified; E87.6 Hypokalemia; F10.10 Alcohol abuse, uncomplicated; F17.210 Nicotine dependence, cigarettes, uncomplicated; G47.00 Insomnia, unspecified; I10 Essential (primary) hypertension; I25.10 Atherosclerotic heart disease of native coronary artery without angina pectoris; I71.4 Abdominal aortic aneurysm, without rupture; K76.0 Fatty (change of) liver, not elsewhere classified; R31.9 Hematuria, unspecified; K86.1 Other chronic pancreatitis; N17.9 Acute kidney failure, unspecified; Z79.84 Long term (current) use of oral hypoglycemic drugs; Z86.711 Personal history of pulmonary embolism; Z86.79 Personal history of other diseases of the circulatory system; Z89.512 Acquired absence of left leg below knee; Z79.1 Long term (current) use of non-steroidal anti-inflammatories (NSAID); Z79.899 Other long term (current) drug therapy; R79.89 Other specified abnormal findings of blood chemistry; Z95.828 Presence of other vascular implants and grafts; I73.9 Peripheral vascular disease, unspecified
CPT/HCPCS: 36415; 74176; 80048; 80053; 80061; 81003; 82607; 82728; 82746; 83036; 83540; 83550; 83735; 84443; 85025; 93005; 96374; 99285; J1170; J2270; J2405; J7030

== ENCOUNTER 2019-12-11 16:46 | Emergency (ER) | payer OTHER ==
[~2019-12-11] VITALS: Ht 170.2 cm; Wt 79.0 kg
[2019-12-11] MEDS ORDERED: TRAMADOL 50MG TABLET PO ONE (17:45)
[2019-12-11] MEDS ORDERED: ACETAMINOPHEN 650MG/20.3ML UDC PO ONE (17:45)
[2019-12-11 22:25] VITALS: BP 129/92
== END 2019-12-11 20:17 | disposition home or self-care (01) ==
LOC: ER 16:46
DX: G44.209 Tension-type headache, unspecified, not intractable (principal); I25.10 Atherosclerotic heart disease of native coronary artery without angina pectoris; E78.00 Pure hypercholesterolemia, unspecified; I10 Essential (primary) hypertension; E11.9 Type 2 diabetes mellitus without complications; Z89.9 Acquired absence of limb, unspecified
CPT/HCPCS: 93005; 99285

== ENCOUNTER 2020-05-26 16:34 | Inpatient (IN) | payer OTHER ==
[~2020-05-26] VITALS: Ht 180.3 cm; Wt 81.6 kg
[2020-05-26] MEDS ORDERED: ONDANSETRON HCL 4MG/2ML INJ IV STA (17:54)
[2020-05-26] MEDS ORDERED: MORPHINE SULFATE 4 MG/ML CPJ (NOT FOR IM USE) IV STA (17:54)
[2020-05-26 18:38] LABS: BASOPHILS % 0.3 % (0.0-2.0); EOSINOPHILS % 0.2 % (0.0-5.0); HEMATOCRIT. 44.9 % (42.0-52.0); HEMOGLOBIN. 15.8 g/dL (14.0-18.0); LYMPHOCYTES % 10.1 % (20.0-50.0); MEAN CORPUSCULAR HEMOGLOBIN 35.6 pg (28.0-32.0); MEAN CORPUSCULAR VOLUME 101.4 fL (80.0-94.0); MEAN PLATELET VOLUME 7.7 fl (7.4-10.4); NEUTROPHILS % 83.4 % (40.0-76.0); PLATELET 171 x1000/uL (130-400); RED BLOOD CELL COUNT 4.43 mill/uL (4.7-6.1); RED CELL DISTRIBUTION WIDTH 14.4 % (11.6-14.6)
[2020-05-26 18:44] LABS: CHLORIDE 99 mEq/L (98-107)
[2020-05-26 18:47] LABS: PROTHROMBIN TIME 10.5 sec (9.6-11.0)
[2020-05-26] MEDS ORDERED: IOHEXOL-350 100 ML BOTTLE ONE (18:54)
[2020-05-26] MEDS ORDERED: LABETALOL 5MG/ML SYR 20 MG/4 ML SYRINGE IV ONE (20:00)
[2020-05-26] MEDS ORDERED: MORPHINE SULFATE 4 MG/ML CPJ (NOT FOR IM USE) IV ONE (20:15)
[2020-05-26] MEDS ORDERED: FENTANYL CITRATE/PF 50MCG/ML 2ML VIAL IV ONE ×3 (20:45→23:00)
[2020-05-26] MEDS ORDERED: HEPARIN 25,000 UNITS PREMIX 250 ML IV SCH ×2 (20:45→21:15)
[2020-05-26] MEDS ORDERED: HEPARIN 80 UNITS/KG BOLUS IV NR (21:15)
[2020-05-27] VITALS (75 sets, daily range): BP systolic 101–174; BP diastolic 39–102
[2020-05-27] MEDS ORDERED: LABETALOL HCL 20MG/4ML CARPUJECT IV ONE ×2 (00:30→04:15)
[2020-05-27] MEDS ORDERED: HEPARIN BOLUS PRN aPTT <36 IV (01:00)
[2020-05-27] MEDS ORDERED: ONDANSETRON HCL 4MG/2ML INJ IV PRN (01:15)
[2020-05-27] MEDS ORDERED: HEPARIN BOLUS PRN aPTT 37-44 IV (02:00)
[2020-05-27] MEDS ORDERED: MORPHINE SULFATE 4 MG/ML CPJ (NOT FOR IM USE) IV ONE ×2 (02:15→07:00)
[2020-05-27] MEDS ORDERED: ESMOLOL 2500MG PREMIX 250 ML IV ONE (04:15)
[2020-05-27] MEDS ORDERED: ESMOLOL 2500MG PREMIX 250 ML IV SCH ×2 (05:00)
[2020-05-27 06:18] LABS: CLARITY URINE TURBID (CLEAR); COLOR URINE ORANGE (YELLOW); KETONES URINE 1+ (NEGATIVE); LEUKOCYTE ESTERASE URINE TRACE (NEGATIVE); NITRITE URINE NEGATIVE (NEGATIVE); OCCULT BLOOD URINE 3+ (NEGATIVE); PH URINE 5.5 (4.5-8.0); PROTEIN URINE 3+ (NEGATIVE); SPECIFIC GRAVITY URINE 1.065 (1.005-1.030)
[2020-05-27] MEDS ORDERED: HYDRALAZINE 20MG/ML VIAL IV ONE (07:00)
[2020-05-27] MEDS ORDERED: ALTEPLASE 100MG/VIAL IV ONE ×2 (07:45→11:45)
[2020-05-27] MEDS ORDERED: NICARDIPINE 50 MG in SODIUM CHLORIDE 0.9% 230 ML IV PRN ×2 (08:30→09:30)
[2020-05-27] MEDS ORDERED: HEPARIN 25,000 UNITS PREMIX 250 ML IV SCH (10:00)
[2020-05-27] MEDS ORDERED: ALTEPLASE 10 MG in SODIUM CHLORIDE 0.9% 250 ML IV SCH ×2 (10:00→12:30)
[2020-05-27] MEDS ORDERED: SODIUM BICARBONATE 4% (2.4MEQ) 5ML VIAL IV ONE (10:02)
[2020-05-27] MEDS ORDERED: LIDOCAINE HCL 1% 20ML VIAL (Pyxis) INJ ONE (10:02)
[2020-05-27] MEDS ORDERED: IOHEXOL-300 100 ML BOTTLE ONE (10:02)
[2020-05-27] MEDS ORDERED: POTASSIUM CHLORIDE INJ 40 MEQ in DEXT 5% WATER 250 ML IV NR (10:30)
[2020-05-27] MEDS ORDERED: FENTANYL CITRATE/PF 50MCG/ML 2ML VIAL ONE ×2 (10:44→11:34)
[2020-05-27] MEDS ORDERED: MIDAZOLAM HCL 2 MG/2 ML VIAL ONE (10:47)
[2020-05-27] MEDS ORDERED: CEFTRIAXONE 1 G PREMIX 50 ML IV SCH (11:30)
[2020-05-27] MEDS ORDERED: MIDAZOLAM HCL 5 MG/5 ML VIAL IV ONE (11:45)
[2020-05-27] MEDS ORDERED: FENTANYL CITRATE/PF 50MCG/ML 2ML VIAL IV ONE (11:45)
[2020-05-27] MEDS: HYDRALAZINE 20MG/ML VIAL IV SCH ×2 (12:00→18:00)
[2020-05-27] MEDS ORDERED: HALOPERIDOL LACTATE 5MG/ML VIAL IM PRN (12:15)
[2020-05-27] MEDS ORDERED: CEFTRIAXONE 1,000 MG in DEXTROSE 5% WATER 50 ML IV SCH (13:00)
[2020-05-27] MEDS: LORAZEPAM 2MG/ML CPJ IV PRN (13:06)
[2020-05-27 15:28] LABS: HEMATOCRIT. 44.4 % (42.0-52.0); HEMOGLOBIN. 15.3 g/dL (14.0-18.0); MEAN CORPUSCULAR HEMOGLOBIN 35.7 pg (28.0-32.0); MEAN CORPUSCULAR VOLUME 103.8 fL (80.0-94.0); MEAN PLATELET VOLUME 8.3 fl (7.4-10.4); PLATELET 161 x1000/uL (130-400); RED BLOOD CELL COUNT 4.28 mill/uL (4.7-6.1); RED CELL DISTRIBUTION WIDTH 14.8 % (11.6-14.6)
[2020-05-27 15:37] LABS: CHLORIDE 99 mEq/L (98-107)
[2020-05-27 15:40] LABS: PARTIAL THROMBOPLASTIN TIME 31.2 sec (23.4-31.0)
[2020-05-27 15:42] LABS: PHOSPHORUS 5.3 mg/dL (2.5-4.9)
[2020-05-27 16:38] LABS: PLATELET ESTIMATE NORMAL
[2020-05-27] MEDS: MORPHINE SULFATE 4 MG/ML CPJ (NOT FOR IM USE) IV PRN (16:56)
[2020-05-27 23:16] LABS: HEMATOCRIT 48.4 % (42.0-52.0); HEMOGLOBIN 16.3 g/dL (14.0-18.0); MEAN CORPUSCULAR VOLUME 104.2 fL (80.0-94.0); PLATELET 154 x1000/uL (130-400); RED BLOOD CELL COUNT 4.65 mill/uL (4.7-6.1); RED CELL DISTRIBUTION WIDTH 14.9 % (11.6-14.6)
[2020-05-28] VITALS (26 sets, daily range): BP systolic 69–170; BP diastolic 32–93
[2020-05-28] MEDS: HYDRALAZINE 20MG/ML VIAL IV SCH
[2020-05-28] MEDS ORDERED: ALTEPLASE 4 MG in SODIUM CHLORIDE 0.9% 100 ML IV SCH ×2
[2020-05-28 01:20] LABS: PARTIAL THROMBOPLASTIN TIME 38.7 sec (23.4-31.0)
[2020-05-28] MEDS: SODIUM CHLORIDE 0.9% 250 ML IV PRN ×2 (02:25→02:27)
[2020-05-28] MEDS: MORPHINE SULFATE 4 MG/ML CPJ (NOT FOR IM USE) IV PRN (03:49)
[2020-05-28] MEDS: LORAZEPAM 2MG/ML CPJ IV PRN (04:41)
[2020-05-28] MEDS ORDERED: CALCIUM CHLORIDE 1GM/10ML SYR IV ONE (05:00)
[2020-05-28] MEDS ORDERED: SODIUM BICARBONATE 8.4% 1 MEQ/ML 50ML SYR IV ONE (05:00)
[2020-05-28] MEDS ORDERED: EPINEPHRINE 0.1MG/ML (1:10,000) 10ML SYR ONE (05:00)
[2020-05-28] MEDS ORDERED: AMIODARONE HCL 50MG/ML 3ML VIAL IV ONE (05:00)
[2020-05-28] MEDS ORDERED: ALTEPLASE 100MG/VIAL IV NR (05:30)
[2020-05-29 15:15] VITALS: BP 69/32
== END 2020-05-28 05:15 | disposition expired | DRG 206 ==
LOC: ER 16:34 → CVICU 05-27 07:44 → ENRESERV 05-27 08:13
PROVIDERS: ADMIT Internal Medicine; ATTEND Internal Medicine
PROC: 3E05317 Introduction of Other Thrombolytic into Peripheral Artery, Percutaneous Approach (ICD-10-PCS; 2020-05-27)
PROC: B41D1ZZ Fluoroscopy of Aorta and Bilateral Lower Extremity Arteries using Low Osmolar Contrast (ICD-10-PCS; 2020-05-27)
PROC: 5A12012 Performance of Cardiac Output, Single, Manual (ICD-10-PCS; principal; 2020-05-28)
PROC: 0BH18EZ Insertion of Endotracheal Airway into Trachea, Via Natural or Artificial Opening Endoscopic (ICD-10-PCS; 2020-05-28)
PROC: 5A1935Z Respiratory Ventilation, Less than 24 Consecutive Hours (ICD-10-PCS; 2020-05-28)
DX: T82.868A Thrombosis due to vascular prosthetic devices, implants and grafts, initial encounter (principal); J96.90 Respiratory failure, unspecified, unspecified whether with hypoxia or hypercapnia; I74.3 Embolism and thrombosis of arteries of the lower extremities; I74.5 Embolism and thrombosis of iliac artery; E78.00 Pure hypercholesterolemia, unspecified; I10 Essential (primary) hypertension; I25.10 Atherosclerotic heart disease of native coronary artery without angina pectoris; M54.5 Low back pain; F17.210 Nicotine dependence, cigarettes, uncomplicated; E78.5 Hyperlipidemia, unspecified; F10.10 Alcohol abuse, uncomplicated; I46.9 Cardiac arrest, cause unspecified; Y90.9 Presence of alcohol in blood, level not specified; E11.51 Type 2 diabetes mellitus with diabetic peripheral angiopathy without gangrene; K76.0 Fatty (change of) liver, not elsewhere classified; Z20.822 Contact with and (suspected) exposure to COVID-19; E87.6 Hypokalemia; I49.01 Ventricular fibrillation; E87.1 Hypo-osmolality and hyponatremia; E44.1 Mild protein-calorie malnutrition; N39.0 Urinary tract infection, site not specified; Z89.512 Acquired absence of left leg below knee; Z79.891 Long term (current) use of opiate analgesic; Z79.01 Long term (current) use of anticoagulants; Z79.899 Other long term (current) drug therapy; Z86.79 Personal history of other diseases of the circulatory system; Y83.8 Other surgical procedures as the cause of abnormal reaction of the patient, or of later complication, without mention of misadventure at the time of the procedure; Y92.89 Other specified places as the place of occurrence of the external cause; N17.0 Acute kidney failure with tubular necrosis
CPT/HCPCS: 36415; 37211; 71045; 75625; 75635; 76937; 80048; 80053; 81003; 82962; 83605; 83735; 84100; 85025; 85027; 85384; 87426; 92950; 93005; 99152; 99153; 99291; C1725; C1766; C1769; J0282; J0360; J0696; J1630; J1644; J2060; J2250; J2270; J2405; J2997; J3010; J3480; J3490; J7030; J7040; J7050; J7060; Q9967; G0500